=== PATIENT | male | born 2000 | race Caucasian/White ===

== ENCOUNTER 2024-09-16 19:08 | Inpatient (IN) | payer SELFPAY ==
[~2024-09-16] VITALS: Ht 185.4 cm; Wt 122.5 kg
[2024-09-16] MEDS: SODIUM CHLORIDE 0.9% (SEPSIS BOLUS) IV ONE (20:16)
[2024-09-16] MEDS: CEFTRIAXONE 1GM/50ML 50 ML IV ONE (20:22)
[2024-09-16] MEDS: ONDANSETRON HCL 4MG/2ML INJ IV STA (20:23)
[2024-09-16] MEDS: KETOROLAC 30MG/ML VIAL IV STA (20:24)
[2024-09-16] MEDS: MORPHINE SULFATE 4 MG/ML INJ (FOR IV/IM USE) IV STA (20:24)
[2024-09-16 20:26] LABS: BASOPHILS % 0.2 % (0.0-2.0); EOSINOPHILS % 0.1 % (0.0-5.0); HEMATOCRIT. 41.5 % (42.0-52.0); HEMOGLOBIN. 14.3 g/dL (14.0-18.0); LYMPHOCYTES % 17.7 % (20.0-50.0); MEAN CORPUSCULAR HEMOGLOBIN 29.7 pg (28.0-32.0); MEAN CORPUSCULAR HGB CONC 34.5 g/dL (31.0-37.0); MEAN CORPUSCULAR VOLUME 86.3 fL (80.0-94.0); MEAN PLATELET VOLUME 8.3 fl (7.4-10.4); MONOCYTES % 11.6 % (2.0-8.0); NEUTROPHILS % 70.4 % (40.0-76.0); PLATELET 262 x1000/uL (130-400); RED BLOOD CELL COUNT 4.81 mill/uL (4.7-6.1); RED CELL DISTRIBUTION WIDTH 12.8 % (11.6-14.6); WHITE BLOOD COUNT 11.8 x1000/uL (4.5-11.0)
[2024-09-16 20:36] LABS: CHLORIDE 103 mEq/L (98-107); INR 1.1; POTASSIUM 3.7 mEq/L (3.5-5.1); PROTHROMBIN TIME 11.7 sec (9.6-11.0); SODIUM 137 mEq/L (136-145)
[2024-09-16 20:37] LABS: CARBON DIOXIDE 26 mEq/L (21-32)
[2024-09-16 20:38] LABS: CALCIUM 9.7 mg/dL (8.7-10.4)
[2024-09-16] MEDS: VANCOMYCIN 1G PREMIX 200 ML IV ONE (20:41)
[2024-09-16 20:42] LABS: CREATININE 1.3 mg/dL (0.6-1.3); GLUCOSE 95 mg/dL (70-105); UREA NITROGEN BLOOD 15 mg/dL (9-23)
[2024-09-16 22:15] LABS: CLARITY URINE CLEAR (CLEAR); COLOR URINE YELLOW (YELLOW); GLUCOSE URINE NEGATIVE (NEGATIVE); KETONES URINE 2+ (NEGATIVE); LEUKOCYTE ESTERASE URINE NEGATIVE (NEGATIVE); NITRITE URINE NEGATIVE (NEGATIVE); OCCULT BLOOD URINE NEGATIVE (NEGATIVE); PH URINE 5.5 (4.5-8.0); PROTEIN URINE NEGATIVE (NEGATIVE); SPECIFIC GRAVITY URINE 1.021 (1.005-1.030)
[2024-09-16] MEDS: LIDOCAINE HCL/EPINEPHRINE 1%-EPI 1:100,000 10ML VIAL INFIL ONE (22:15)
[2024-09-16] MEDS: LIDOCAINE HCL/EPINEPHRINE 1%-EPI 1:100,000 10ML VIAL INFIL SCH (22:30)
[2024-09-17] MEDS ORDERED: HYDROCODONE/ACETAMINOPHEN 5/325MG TABLET PO PRN (01:00)
[2024-09-17] MEDS ORDERED: ACETAMINOPHEN 325MG TABLET PO PRN ×2 (01:00)
[2024-09-17] MEDS ORDERED: ONDANSETRON HCL 4MG/2ML INJ IV PRN (01:00)
[2024-09-17] MEDS ORDERED: NALOXONE HCL 0.4MG/ML VIAL IV PRN (01:30)
[2024-09-17] MEDS: CLINDAMYCIN 600MG PREMIX 50 ML IV SCH (02:41)
[2024-09-17] MEDS: SODIUM CHLORIDE 0.45% 1,000 ML IV SCH (02:42)
[2024-09-17 03:01] VITALS: BP 162/81; PULSE 85; RESP 19; TEMP 37.3
[2024-09-17 04:00] VITALS: BP 176/86; PULSE 78; RESP 19; TEMP 36.7; O2SAT 99
[2024-09-17] MEDS: PANTOPRAZOLE 40MG DR TABLET PO SCH (06:04)
[2024-09-17] MEDS: CLONIDINE 0.1MG TABLET PO PRN (06:04)
[2024-09-17 07:11] LABS: HEMATOCRIT 39.7 % (42.0-52.0); HEMOGLOBIN 13.8 g/dL (14.0-18.0); MEAN CORPUSCULAR HEMOGLOBIN 29.9 pg (28.0-32.0); MEAN CORPUSCULAR HGB CONC 34.7 g/dL (31.0-37.0); MEAN CORPUSCULAR VOLUME 86.1 fL (80.0-94.0); PLATELET 239 x1000/uL (130-400); RED BLOOD CELL COUNT 4.61 mill/uL (4.7-6.1)
[2024-09-17 07:20] LABS: CALCIUM 9.3 mg/dL (8.7-10.4); CARBON DIOXIDE 27 mEq/L (21-32); CHLORIDE 107 mEq/L (98-107); POTASSIUM 4.2 mEq/L (3.5-5.1); SODIUM 139 mEq/L (136-145)
[2024-09-17 07:26] LABS: CREATININE 1.1 mg/dL (0.6-1.3); GLUCOSE 103 mg/dL (70-105); UREA NITROGEN BLOOD 11 mg/dL (9-23)
[2024-09-17 07:28] LABS: PHOSPHORUS 3.2 mg/dL (2.5-4.9)
[2024-09-17 08:00] VITALS: BP 135/69; PULSE 87; RESP 20; TEMP 36.2; O2SAT 100
[2024-09-17 12:00] VITALS: BP 122/77; PULSE 79; RESP 20; TEMP 36.6; O2SAT 99
[2024-09-17] MEDS ORDERED: CIPR750T4 MT (14:11)
[2024-09-17 14:46] VITALS: BP 122/77; PULSE 79; TEMP 97.7; O2SAT 99
== END 2024-09-17 15:12 | disposition home or self-care (01) | DRG 720 ==
LOC: ER 19:08 → 8EST 09-17 00:28 → ENRESERV 09-17 00:44
PROVIDERS: ADMIT Internal Medicine; ATTEND Internal Medicine
PROC: 0Y900ZZ Drainage of Right Buttock, Open Approach (ICD-10-PCS; principal; 2024-09-17)
DX: A41.9 Sepsis, unspecified organism (principal); L02.31 Cutaneous abscess of buttock; L03.317 Cellulitis of buttock
CPT/HCPCS: 10060; 36415; 71045; 80048; 81003; 83605; 83735; 84100; 84145; 85025; 85027; 96365; 96367; 96375; 99291; J0696; J1885; J2270; J2405; J3370; J3490; J7030